=== PATIENT | male | born 1980 | race Caucasian/White ===

== ENCOUNTER 2017-08-26 08:50 | Emergency (ER) | payer OTHER ==
[~2017-08-26] VITALS: Ht 185.4 cm; Wt 123.4 kg
[2017-08-26 08:55] VITALS: BP 150/89; PULSE 82; RESP 16; TEMP 98.6; O2SAT 97
--- NOTE | 2017-08-26 09:18 | PD ---
HPI Chief Complaint: Abdominal Pain Time Seen by Provider: 09:04 Travel History International Travel<30 days: No Contact w/Intl Traveler<30days: No Traveled to known affect area: No History of Present Illness HPI This patient complains of abdominal pain. It's located in his left side/left flank. Duration 3 days. It's intermittent. Can be severe at times but at this time he is not having pain. No alleviating factors. Symptoms may have been exacerbated by a workout at the gym the morning before the pain started. No rectal bleeding or vomiting. He feels bloated in the abdomen. PFSH Past Medical History Cardiovascular Problems: Yes (pacemaker,defib) Social History Alcohol Use: No Tobacco Use: No Substance Use: No Allergies-Medications (Allergen,Severity, Reaction): Coded Allergies: povidone-iodine (Verified Allergy, Severe, rash, 08/26/17) soap (Verified Allergy, Severe, rash, 08/26/17) Reported Meds & Prescriptions Reported Meds & Active Scripts Active No Active Prescriptions or Reported Medications Review of Systems General / Constitutional: No: Fever Eyes: No: Visual changes HENT: No: Headaches Cardiovascular: No: Chest Pain or Discomfort Respiratory: No: Shortness of Breath Gastrointestinal: Positive: Abdominal Pain Genitourinary: Positive: Flank Pain, No: Dysuria Musculoskeletal: No: Pain Skin: No Rash Neurologic: No: Weakness Psychiatric: No: Depression Endocrine: No: Polydipsia Hematologic/Lymphatic: No: Easy Bruising Physical Exam Narrative GENERAL: Well-nourished, well-developed patient in no apparent distress. SKIN: Focused skin assessment reveals no rash and nodules. Skin is Warm and dry. HEAD: Atraumatic. Normocephalic. EYES: Pupils equal and round. No scleral icterus. No injection or drainage. ENT: No nasal bleeding or discharge. Mucous membranes pink and moist. NECK: Trachea midline. No JVD. CARDIOVASCULAR: Regular rate and rhythm. No murmur appreciated. RESPIRATORY: No accessory muscle use. Clear to auscultation. Breath sounds equal bilaterally. GASTROINTESTINAL: Abdomen soft, non-tender, nondistended. Hepatic and splenic margins not palpable. MUSCULOSKELETAL: No obvious deformities. No clubbing. No cyanosis. No edema. NEUROLOGICAL: Awake and alert. No obvious cranial nerve deficits. Motor grossly within normal limits. Normal speech. PSYCHIATRIC: Appropriate mood and affect; insight and judgment normal. Data Data Last Documented VS Vital Signs Date Time Temp Pulse Resp B/P (MAP) Pulse Ox O2 Delivery O2 Flow Rate FiO2 08/26/17 08:55 98.6 82 16 150/89 (109) [address] Abd/Pel W/O Iv Contrast (08/26/17 ) Urinalysis - C+S If Indicated (08/26/17 09:14) Ed Discharge Order (08/26/17 10:05) Labs Laboratory Tests Test 08/26/17 09:30 Urine Collection Type CLEAN CATCH Urine Color YELLOW Urine Turbidity CLEAR Urine pH 6.0 Urine Specific [place] 1.024 Urine Protein NEG mg/dL Urine Glucose (UA) NEG mg/dL Urine Ketones NEG mg/dL Urine Occult Blood TRACE Urine Nitrite NEG Urine Bilirubin NEG Urine Leukocyte Esterase NEG Urine RBC 0-3 /hpf Urine Squamous Epithelial Cells 0-5 /hpf Microscopic Urinalysis Comment CULT NOT INDICATED Urine Collection Time 09:30 [facility] Medical Decision Making Medical Screen Exam Complete: Yes Emergency Medical Condition: Yes Medical Record Reviewed: Yes Differential Diagnosis Kidney stone, pyelonephritis, abdominal wall strain or tear Narrative Course I have reviewed the patient's electronic medical record. Had a lengthy discussion with the patient regarding workup. He has intermittent left flank pain without obvious injury. He does not have urinary symptoms. Urinalysis is normal CT of abdomen and pelvis shows no cause for his pain, just scattered diverticuli Workup here is negative. Could be musculoskeletal in nature. Stable for outpatient follow-up. Diagnosis Primary Impression: Acute left flank pain Additional Instructions: The patient was advised to follow up with their physician and return if they worsen. Med/Other Pt SpecificInfo: Other Scripts No Active Prescriptions or Reported Meds Disposition: 01 DISCHARGE HOME Condition: Stable Humberto Glasre MD Aug 26, 2017 09:17
[2017-08-26 09:39] LABS: GLUCOSE,URINE NEG (NEG); KETONE, URINE NEG (NEG); NITRITE,URINE NEG (NEG)
[2017-08-26 09:44] LABS: BLOOD, URINE TRACE (NEG); METHOD OF COLLECTION CLEAN CATCH; URINE COLOR YELLOW (YELLW/STRAW)
[2017-08-26 09:45] LABS: COMMENT (UR) CULT NOT INDICATED; CULTURE IF INDICATED CULT NOT INDICATED; RBC, URINE 0-3 /hpf (0-3); SQUAMOUS EPITHELIAL CELL URINE 0-5 /hpf (0-5)
--- NOTE | 2017-08-26 10:00 | RADRPT ---
EXAM DATE/TIME: 08/26/2017 09:32 [facility] COMPARISON: No previous studies available for comparison. INDICATIONS : Left abdominal pain, worse with movement x 3 days. ORAL CONTRAST: No oral contrast ingested. RADIATION DOSE: 21.67 CTDIvol (mGy) MEDICAL HISTORY : Cardiovascular disease. SURGICAL HISTORY : Pacemaker. Valve replacement. ENCOUNTER: Initial ACUITY: 3 days PAIN SCALE: 5/10 LOCATION: Left abdomen TECHNIQUE: Volumetric scanning of the abdomen and pelvis was performed. Using automated exposure control and ad justment of the mA and/or kV according to patient size, radiation dose was kept as low as reasonably achievable to obtain optimal diagnostic quality images. DICOM format image data is available electro nically for review and comparison. FINDINGS: Compensated cardiomegaly without pleural effusion. The liver, spleen and pancreas are unremarkable The right and left adrenals are unremarkable Kidneys appear normal The region of the cecum and terminal ileum unremarkable. There no inflammatory changes. In the pelvis there are scattered diverticuli in the sigmoid colon without diverticulitis. There is no ascites or adenopathy. CONCLUSION: Scattered diverticuli sigmoid colon. I don't see inflammatory changes. I do not see etiology for left-sided abdominal pain. Douglas Perkins MD FACR on August 26, 2017 at 9:57 Board Certified Radiologist. This report was verified electronically.
[2017-08-26 10:13] VITALS: BP 140/80; PULSE 80; RESP 16; O2SAT 98
== END 2017-08-26 10:14 | disposition home or self-care (01) ==
LOC: PHED 08:50
DX: R10.9 Unspecified abdominal pain (principal); R14.0 Abdominal distension (gaseous)
CPT/HCPCS: 74176; 81001

== ENCOUNTER 2018-05-07 08:18 | Emergency (ER) | payer OTHER ==
[~2018-05-07] VITALS: Ht 185.4 cm; Wt 127.0 kg
[2018-05-07 08:22] VITALS: BP 182/104; PULSE 105; RESP 16; TEMP 98.3; O2SAT 94
[2018-05-07] MEDS ORDERED: SODIUM CHLORIDE 0.9% FLUSH 10 ML FLUSH IVF PRN (08:30)
--- NOTE | 2018-05-07 08:33 | PD ---
HPI Chief Complaint: Suicide Ideation/Attempt Time Seen by Provider: 08:27 Travel History International Travel<30 days: No Contact w/Intl Traveler<30days: No Traveled to known affect area: No History of Present Illness HPI Patient presents to the emergency department suicidal thoughts. Symptoms triggered by a fianc breakup. Plan to use his own personal guidance, which she has since given to his friends. Denies AV hallucinations, HI, chest pain, shortness of breath, fever, chills, but does report nausea with dry heaves this morning. He denies history of any mental health issues or suicidal ideation or depression in the past. 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 [facility] Past Medical History Cardiovascular Problems: Yes (pacer, defib) Past Surgical History Cardiac Surgery: Yes (open heart:electronic defibrillator) Social History Alcohol Use: No Tobacco Use: No Substance Use: No Allergies-Medications (Allergen,Severity, Reaction): Coded Allergies: povidone-iodine (Verified Allergy, Severe, rash, 05/07/18) soap (Verified Allergy, Severe, rash, 05/07/18) Reported Meds & Prescriptions Reported Meds & Active Scripts Active Reported Zofran (Ondansetron HCl) 4 Mg Tab 4 Mg PO Q6HR PRN Review of Systems Except as stated in HPI: all other systems reviewed are Neg Physical Exam Narrative GENERAL: No acute distress. SKIN: Focused skin assessment warm/dry. HEAD: Atraumatic. Normocephalic. EYES: Pupils equal and round. No scleral icterus. No injection or drainage. ENT: No nasal bleeding or discharge. Mucous membranes pink and moist. NECK: Trachea midline. No JVD. CARDIOVASCULAR: Regular rate and rhythm. No murmur appreciated. RESPIRATORY: No accessory muscle use. Clear to auscultation. Breath sounds equal bilaterally. GASTROINTESTINAL: Abdomen soft, non-tender, nondistended. Hepatic and splenic margins not palpable. MUSCULOSKELETAL: No obvious deformities. No clubbing. No cyanosis. No edema. NEUROLOGICAL: Awake and alert. No obvious cranial nerve deficits. Motor grossly within normal limits. Normal speech. PSYCHIATRIC: Appropriate mood and affect; insight and judgment normal. Data Data Last Documented VS Vital Signs Date Time Temp Pulse Resp B/P (MAP) Pulse Ox O2 Delivery O2 Flow Rate FiO2 05/07/18 11:28 90 16 134/66 (88) 96 Room Air 05/07/18 08:22 98.3 Orders Orders Complete Blood Count With Diff (05/07/18 08:30) Comprehensive Metabolic Panel (05/07/18 08:30) Thyroid Stimulating Hormone (05/07/18 08:30) Psych Screen (05/07/18 08:30) Sodium Chloride 0.9% Flush (Ns Flush) (05/07/18 08:30) Drug Screen, Random Urine (05/07/18 08:30) Alcohol (Ethanol) (05/07/18 08:30) Salicylates (Aspirin) (05/07/18 08:30) Tylenol (Acetaminophen) (05/07/18 08:30) Ckmb (Isoenzyme) Profile (05/07/18 09:17) Troponin I (05/07/18 09:17) Chest, Single Ap (05/07/18 09:33) B-Type Natriuretic Peptide (05/07/18 09:51) CKMB (05/07/18 09:15) CKMB% (05/07/18 09:15) Troponin I (05/07/18 11:12) Ckmb (Isoenzyme) Profile (05/07/18 11:29) Creatine Kinase (Cpk) (05/07/18 11:29) CKMB (05/07/18 12:15) CKMB% (05/07/18 12:15) Labs Laboratory Tests Test 05/07/18 09:15 05/07/18 10:00 05/07/18 10:10 05/07/18 12:15 White Blood Count 6.5 TH/MM3 Red Blood Count 5.40 MIL/MM3 Hemoglobin 16.4 GM/DL Hematocrit 49.3 % Mean Corpuscular Volume 91.4 FL Mean Corpuscular Hemoglobin 30.4 PG Mean Corpuscular Hemoglobin Concent 33.3 % Red Cell Distribution Width 12.1 % Platelet Count 308 TH/MM3 Mean Platelet Volume 7.9 FL Neutrophils (%) (Auto) 51.9 % Lymphocytes (%) (Auto) 35.5 % Monocytes (%) (Auto) 9.2 % Eosinophils (%) (Auto) 1.4 % Basophils (%) (Auto) 2.0 % Neutrophils # (Auto) 3.4 TH/MM3 Lymphocytes # (Auto) 2.3 TH/MM3 Monocytes # (Auto) 0.6 TH/MM3 Eosinophils # (Auto) 0.1 TH/MM3 Basophils # (Auto) 0.1 TH/MM3 CBC Comment DIFF FINAL Differential Comment Blood Urea Nitrogen 12 MG/DL Creatinine 0.95 MG/DL Random Glucose 105 MG/DL Total Protein 8.1 GM/DL Albumin 4.1 GM/DL Calcium Level 8.5 MG/DL Alkaline Phosphatase 103 U/L Aspartate Amino Transf (AST/SGOT) 22 U/L Alanine Aminotransferase (ALT/SGPT) 43 U/L Total Bilirubin 0.5 MG/DL Sodium Level 141 MEQ/L Potassium Level 4.3 MEQ/L Chloride Level 105 MEQ/L Carbon Dioxide Level 28.6 MEQ/L Anion Gap 7 MEQ/L Estimat Glomerular Filtration Rate 89 ML/MIN Total Creatine Kinase 195 U/L 179 U/L Creatine Kinase MB 2.8 NG/ML 2.5 NG/ML Troponin I LESS THAN 0.02 NG/ML LESS THAN 0.02 NG/ML Thyroid Stimulating Hormone 3rd Gen 1.170 uIU/ML Salicylates Level LESS THAN 1.7 MG/DL Acetaminophen Level LESS THAN 2.0 MCG/ML Ethyl Alcohol Level 110 MG/DL Urine Opiates Screen NEG Urine Barbiturates Screen NEG Urine Amphetamines Screen NEG Urine Benzodiazepines Screen NEG Urine Cocaine Screen NEG Urine Cannabinoids Screen NEG B-Type Natriuretic Peptide 28 PG/ML MDM Medical Decision Making Medical Screen Exam Complete: Yes Emergency Medical Condition: Yes Interpretation(s) ECG: Rate 97, right bundle branch block, ST depression in lead 1/2/aVL V3 through V6, LELAND aVF, V1 through V3 Labs: Elevated alcohol level Last Impressions Chest X-Ray 05/07/18 0912 Signed Impressions: CONCLUSION: Cardiomegaly with increase in pulmonary vascularity. Status post CABG. Differential Diagnosis Suicidal ideation, depression, alcohol/drug intoxication Narrative Course Patient presents to the emergency department with suicidal ideation. He is afebrile, tachycardic, hypertensive. Patient placed on a Castillo act and mental health consult and labs ordered. 156/90 BP and HR 97 in ER. 1127: Patient requesting referral for both Cardiology, as his digital asset manager is in [place], and GI, for n/v that he has only been able to see GI doctor's PA about. They are requesting that he gets cardiology clearance before they scope him, which they advised he needs. 1251: Repeat cardiac enzymes wnl. Patient resting in stretcher talking to sitter. Physician Communication Physician Communication 1056: Discussed case with cardiology director occupational, Dr. Hassan. Sent copy of ECG. Patient doesn't have chest pain but was tachy in triage so ECG ordered. 1110: Dr Hassan believes ECG 2/2 RVH secondary to tetrology of fallot. Advised to get repeat enzymes if negative, cleared. Diagnosis Primary Impression: Suicidal ideation Referrals: Leanne Flores MD, Joshua A. MD Disposition: 70 TRANSFER TO OTHER FACILITY ([facility] for psych assessment) Mary Ann MD May 07, 2018 08:33
[2018-05-07] MEDS ORDERED: ZOFR4TAB PO (09:00)
[2018-05-07 09:28] LABS: AUTOMATED NEUTROPHIL # 3.4 TH/MM3 (1.8-7.7); BASOPHIL # 0.1 TH/MM3 (0-0.2); EOSINOPHIL # 0.1 TH/MM3 (0-0.4); EOSINOPHIL % 1.4 % (0.0-4.0); HEMATOCRIT 49.3 % (39.0-51.0); HEMOGLOBIN 16.4 GM/DL (13.0-17.0); LYMPH % 35.5 % (9.0-44.0); LYMPHOCYTE # 2.3 TH/MM3 (1.0-4.8); MEAN CELL VOLUME 91.4 FL (80.0-100.0); MEAN CORPUSCULAR HEMOGLOBIN 30.4 PG (27.0-34.0); MEAN CORPUSCULAR HGB CONC 33.3 % (32.0-36.0); MEAN PLATELET VOLUME 7.9 FL (7.0-11.0); MONO % 9.2 % (0.0-8.0); MONOCYTE # 0.6 TH/MM3 (0-0.9); NEUT % 51.9 % (16.0-70.0); PLATELET COUNT 308 TH/MM3 (150-450); RED CELL DISTRIBUTION WIDTH 12.1 % (11.6-17.2); WHITE BLOOD COUNT 6.5 TH/MM3 (4.0-11.0)
--- NOTE | 2018-05-07 09:49 | RADRPT ---
EXAM DATE: 05/07/2018 9:45 AM EDT AGE/SEX: 38 years / Male INDICATIONS: Suicidal, chest pain CLINICAL DATA: This is the patient's initial encounter. Patient reports that signs and symptoms have been present for 1 day and indicates a pain score of 0/10. MEDICAL/SURGICAL HISTORY: Cardiovascular disease. Defibrillator. COMPARISON: No prior exams available for comparison. FINDINGS: A single AP view of the chest demonstrates the lungs to be symmetrically aerated without evidence of mass, infiltrate or effusion. Cardiomegaly with increase in pulmonary vascularity. Status post CABG. Left-sided pacemaker with 2 intact leads The cardiomediastinal contours are unremarkable. Osseous st ructures are intact. CONCLUSION: Cardiomegaly with increase in pulmonary vascularity. Status post CABG. Electronically signed by: Bobby Guillory MD 05/07/2018 9:47 AM EDT
[2018-05-07 09:57] LABS: CALCIUM 8.5 MG/DL (8.5-10.1)
[2018-05-07 09:58] LABS: ALBUMIN 4.1 GM/DL (3.4-5.0); BICARBONATE 28.6 MEQ/L (21.0-32.0); BLOOD UREA NITROGEN 12 MG/DL (7-18); GLUCOSE,RANDOM 105 MG/DL (74-106)
[2018-05-07 10:01] LABS: ALT (GPT) 43 U/L (12-78); AST (GOT) 22 U/L (15-37); CREATININE 0.95 MG/DL (0.60-1.30); GLOMERULAR FILTRATION RATE 89 ML/MIN (>89)
[2018-05-07 10:02] LABS: TOTAL BILIRUBIN ADULT 0.5 MG/DL (0.2-1.0); TOTAL PROTEIN 8.1 GM/DL (6.4-8.2)
[2018-05-07 10:04] LABS: ALKALINE PHOSPHATASE 103 U/L (45-117)
[2018-05-07 10:05] LABS: CHLORIDE 105 MEQ/L (98-107); SODIUM (NA) 141 MEQ/L (136-145)
[2018-05-07 10:11] LABS: TROPONIN I LESS THAN 0.02 NG/ML (0.02-0.05)
[2018-05-07 10:17] VITALS: BP 131/74; PULSE 91; RESP 16; O2SAT 96
[2018-05-07 10:39] LABS: ACETAMINOPHEN LESS THAN 2.0 MCG/ML (10.0-30.0)
[2018-05-07 11:28] VITALS: BP 134/66; PULSE 90; RESP 16; O2SAT 96
[2018-05-07 13:11] VITALS: BP 135/80; PULSE 89; RESP 16; O2SAT 96
[2018-05-07 16:00] VITALS: BP 153/95; PULSE 84; RESP 20; TEMP 98.3; O2SAT 98
--- NOTE | 2018-05-07 17:15 | PD ---
History of Present Illness Chief Complaint: Suicide Ideation/Attempt Time Seen by Provider: 16:50 Travel History International Travel<30 Days: No Contact w/Intl Traveler<30days: No Known affected area: No Legal Status Legal Status: Involuntary Castillo Act Comment: Levi Lyn, ED physician History of Present Illness: History of Present Illness HPI Patient is a 38-year-old single male, with no previous psychiatric history who presents to the emergency department on a voluntary status reporting suicidal thoughts. The patient symptoms triggered by a fianc breakup last night. At that time he had thoughts of using his gun to harm himself but did not do so. This morning he called an [employer] and came to the emergency department. He had some complaints of nausea and was evaluated medically and cleared. The patient was monitored in J pod and presented no behavioral concerns and no suicidality. EMR reviewed. No previous contact with [facility] psychiatry. Blood alcohol level on arrival 110. Patient is seen. He is alert, oriented, cooperative and calm. His speech is clear and logical. No evidence of any psychosis, no yasmani, no hypomania. He tells me that his fianc broke up with him via text message last night and he went out and got a bottle of alcohol and was drinking when he began experiencing suicidal thoughts. Today clinically sober he states' I do not really want to kill myself. It was mostly the alcohol.' The patient is appropriately sad over the breakup of a 2 year relationship. Remainder of psychiatric review of system is negative Telephone contact with his NOK, MRs. Rooney. She has no concerns if he were to be discharged. Her will keep his guns in their home. Patient's mother is on her way from [place] today to stay with the patient.. PFSH Past Medical History Cardiovascular Problems: Yes (eben kerns, ) Diminished Hearing: No Influenza Vaccination: No ?: Not Past Surgical History Cardiac Surgery: Yes (open heart:electronic defibrillator) Psychiatric History Psychiatric History Hx Psychiatric Treatment: Negative History of Inpatient Treatment: No Guns or firearms in home: No (Owns guns but were given to neighbor to keep in safe.) Social History Born and raised in [place]. Moved to [place] 1 year ago. Was living with his fiance of 2 years. 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 Hx Alcohol Use: Yes (occ last night a lot) Hx Tobacco Use: No Hx Substance Use: Yes Substance Use Type: Alcohol Other Substances Used: Occ drinks alcohol. Last night had a large amt of alcohol Hx of Substance Use Treatment: No Allergies-Medications (Allergen,Severity, Reaction): Coded Allergies: povidone-iodine (Verified Allergy, Severe, rash, 05/07/18) soap (Verified Allergy, Severe, rash, 05/07/18) Reported Meds & Prescriptions Reported Meds & Active Scripts Active Reported Zofran (Ondansetron HCl) 4 Mg Tab 4 Mg PO Q6HR PRN Review of Systems Gastrointestinal: COMPLAINS OF: Abdominal pain, Nausea, Vomiting Psychiatric: DENIES: Anxiety, Confusion, Mood changes, Depression, Hallucinations, Agitation, Suicidal Ideation, Homicidal Ideation, Delusions Mental Status Examination Appearance: Appropriate (In hospital scrubs) Consciousness: Alert Orientation: x4 Motor Activity: Normal gait Speech: Unremarkable Language: Adequate Fund of Knowledge: Adequate Attention and Concentration: Adequate Memory: Unremarkable Mood: Appropriate Affect: Appropriate Thought Process & Associations: Intact, Logical, Goal directed Thought Content: Appropriate Hallucination Type: None Delusion Type: None Suicidal Ideation: No Suicidal Plan: No Suicidal Intention: No Homicidal Ideation: No Homicidal Plan: No Homicidal Intention: No Insight: Adequate Judgment: Adequate MDM Medical Decision Making Medical Record Reviewed: Yes Assessment/Plan Patient is a 38-year-old single male, with no previous psychiatric history who presents to the emergency department on a voluntary status reporting suicidal thoughts. The patient symptoms triggered by a fianc breakup last night. At that time he had thoughts of using his gun to harm himself but did not do so. This morning he called an [employer] and came to the emergency department. He had some complaints of nausea and was evaluated medically and cleared. The patient was monitored in J pod and presented no behavioral concerns and no suicidality. The patient does not present any evidence of any unstable mental illness as defined under the Castillo act. He has adequate support. His mother is on her way from [place] to be with him. He has supportive friends who have secure his weapons. The patient does not meet criteria to remain under the Castillo act and is requesting to be discharged. I find no criteria to keep him here against his will. I have provided psychoeducation and support. Castillo act as lifted. Instructed to return to the emergency department if any changes or concerns. Orders Orders Complete Blood Count With Diff (05/07/18 08:30) Comprehensive Metabolic Panel (05/07/18 08:30) Thyroid Stimulating Hormone (05/07/18 08:30) Psych Screen (05/07/18 08:30) Sodium Chloride 0.9% Flush (Ns Flush) (05/07/18 08:30) Drug Screen, Random Urine (05/07/18 08:30) Alcohol (Ethanol) (05/07/18 08:30) Salicylates (Aspirin) (05/07/18 08:30) Tylenol (Acetaminophen) (05/07/18 08:30) Ckmb (Isoenzyme) Profile (05/07/18 09:17) Troponin I (05/07/18 09:17) Chest, Single Ap (05/07/18 09:33) B-Type Natriuretic Peptide (05/07/18 09:51) CKMB (05/07/18 09:15) CKMB% (05/07/18 09:15) Troponin I (05/07/18 11:12) Ckmb (Isoenzyme) Profile (05/07/18 11:29) Creatine Kinase (Cpk) (05/07/18 11:29) CKMB (05/07/18 12:15) CKMB% (05/07/18 12:15) Diet Regular Basic (05/07/18 Dinner) Electrocardiogram (05/07/18 08:56) Results Vital Signs Date Time Temp Pulse Resp B/P (MAP) Pulse Ox O2 Delivery O2 Flow Rate FiO2 05/07/18 16:00 98.3 84 20 153/95 (114) 98 Room Air 05/07/18 13:20 05/07/18 13:11 89 16 135/80 (98) 96 Room Air 05/07/18 11:28 90 16 134/66 (88) 96 Room Air 05/07/18 10:17 91 16 131/74 (93) 96 Room Air 05/07/18 08:54 16 05/07/18 08:22 98.3 105 16 182/104 (130) 94 Laboratory Tests Test 05/07/18 09:15 05/07/18 10:00 05/07/18 10:10 05/07/18 12:15 White Blood Count 6.5 Red Blood Count 5.40 Hemoglobin 16.4 Hematocrit 49.3 Mean Corpuscular Volume 91.4 Mean Corpuscular Hemoglobin 30.4 Mean Corpuscular Hemoglobin Concent 33.3 Red Cell Distribution Width 12.1 Platelet Count 308 Mean Platelet Volume 7.9 Neutrophils (%) (Auto) 51.9 Lymphocytes (%) (Auto) 35.5 Monocytes (%) (Auto) 9.2 Eosinophils (%) (Auto) 1.4 Basophils (%) (Auto) 2.0 Neutrophils # (Auto) 3.4 Lymphocytes # (Auto) 2.3 Monocytes # (Auto) 0.6 Eosinophils # (Auto) 0.1 Basophils # (Auto) 0.1 CBC Comment DIFF FINAL Differential Comment Blood Urea Nitrogen 12 Creatinine 0.95 Random Glucose 105 Total Protein 8.1 Albumin 4.1 Calcium Level 8.5 Alkaline Phosphatase 103 Aspartate Amino Transf (AST/SGOT) 22 Alanine Aminotransferase (ALT/SGPT) 43 Total Bilirubin 0.5 Sodium Level 141 Potassium Level 4.3 Chloride Level 105 Carbon Dioxide Level 28.6 Anion Gap 7 Estimat Glomerular Filtration Rate 89 Total Creatine Kinase 195 179 Creatine Kinase MB 2.8 2.5 Troponin I LESS THAN 0.02 LESS THAN 0.02 Thyroid Stimulating Hormone 3rd Gen 1.170 Salicylates Level LESS THAN 1.7 Acetaminophen Level LESS THAN 2.0 Ethyl Alcohol Level 110 Urine Opiates Screen NEG Urine Barbiturates Screen NEG Urine Amphetamines Screen NEG Urine Benzodiazepines Screen NEG Urine Cocaine Screen NEG Urine Cannabinoids Screen NEG B-Type Natriuretic Peptide 28 Diagnosis Primary Impression: Suicidal ideation Additional Impression: Adjustment disorder Psychiatrically Cleared: Yes Referrals: Leanne Flores MD, Joshua A. MD Disposition: 01 DISCHARGE HOME Condition: Stable Problem Qualifiers Additional Impression: Adjustment disorder Qualified Codes: F43.23 - Adjustment disorder with mixed anxiety and depressed mood Sana Leon May 07, 2018 17:15
--- NOTE | 2018-05-07 17:42 | PD ---
Physical Exam Date Seen by Provider: May 07, 2018 Time Seen by Provider: 17:42 Narrative 38-year-old previously medically cleared for psychiatric evaluation, has been seen by psychiatric staff and deemed to be psychiatrically stable for discharge at this time. Patient remains medically stable for discharge. Patient is medically follow-up with chicken stuffer for his heart condition. Follow-up will be based on psychiatric note. Data Data Last Documented VS Vital Signs Date Time Temp Pulse Resp B/P (MAP) Pulse Ox O2 Delivery O2 Flow Rate FiO2 05/07/18 16:00 98.3 84 20 153/95 (114) 98 Room Air Orders Orders Complete Blood Count With Diff (05/07/18 08:30) Comprehensive Metabolic Panel (05/07/18 08:30) Thyroid Stimulating Hormone (05/07/18 08:30) Psych Screen (05/07/18 08:30) Sodium Chloride 0.9% Flush (Ns Flush) (05/07/18 08:30) Drug Screen, Random Urine (05/07/18 08:30) Alcohol (Ethanol) (05/07/18 08:30) Salicylates (Aspirin) (05/07/18 08:30) Tylenol (Acetaminophen) (05/07/18 08:30) Ckmb (Isoenzyme) Profile (05/07/18 09:17) Troponin I (05/07/18 09:17) Chest, Single Ap (05/07/18 09:33) B-Type Natriuretic Peptide (05/07/18 09:51) CKMB (05/07/18 09:15) CKMB% (05/07/18 09:15) Troponin I (05/07/18 11:12) Ckmb (Isoenzyme) Profile (05/07/18 11:29) Creatine Kinase (Cpk) (05/07/18 11:29) CKMB (05/07/18 12:15) CKMB% (05/07/18 12:15) Diet Regular Basic (05/07/18 Dinner) Electrocardiogram (05/07/18 08:56) Labs Laboratory Tests Test 05/07/18 09:15 05/07/18 10:00 05/07/18 10:10 05/07/18 12:15 White Blood Count 6.5 TH/MM3 Red Blood Count 5.40 MIL/MM3 Hemoglobin 16.4 GM/DL Hematocrit 49.3 % Mean Corpuscular Volume 91.4 FL Mean Corpuscular Hemoglobin 30.4 PG Mean Corpuscular Hemoglobin Concent 33.3 % Red Cell Distribution Width 12.1 % Platelet Count 308 TH/MM3 Mean Platelet Volume 7.9 FL Neutrophils (%) (Auto) 51.9 % Lymphocytes (%) (Auto) 35.5 % Monocytes (%) (Auto) 9.2 % Eosinophils (%) (Auto) 1.4 % Basophils (%) (Auto) 2.0 % Neutrophils # (Auto) 3.4 TH/MM3 Lymphocytes # (Auto) 2.3 TH/MM3 Monocytes # (Auto) 0.6 TH/MM3 Eosinophils # (Auto) 0.1 TH/MM3 Basophils # (Auto) 0.1 TH/MM3 CBC Comment DIFF FINAL Differential Comment Blood Urea Nitrogen 12 MG/DL Creatinine 0.95 MG/DL Random Glucose 105 MG/DL Total Protein 8.1 GM/DL Albumin 4.1 GM/DL Calcium Level 8.5 MG/DL Alkaline Phosphatase 103 U/L Aspartate Amino Transf (AST/SGOT) 22 U/L Alanine Aminotransferase (ALT/SGPT) 43 U/L Total Bilirubin 0.5 MG/DL Sodium Level 141 MEQ/L Potassium Level 4.3 MEQ/L Chloride Level 105 MEQ/L Carbon Dioxide Level 28.6 MEQ/L Anion Gap 7 MEQ/L Estimat Glomerular Filtration Rate 89 ML/MIN Total Creatine Kinase 195 U/L 179 U/L Creatine Kinase MB 2.8 NG/ML 2.5 NG/ML Troponin I LESS THAN 0.02 NG/ML LESS THAN 0.02 NG/ML Thyroid Stimulating Hormone 3rd Gen 1.170 uIU/ML Salicylates Level LESS THAN 1.7 MG/DL Acetaminophen Level LESS THAN 2.0 MCG/ML Ethyl Alcohol Level 110 MG/DL Urine Opiates Screen NEG Urine Barbiturates Screen NEG Urine Amphetamines Screen NEG Urine Benzodiazepines Screen NEG Urine Cocaine Screen NEG Urine Cannabinoids Screen NEG B-Type Natriuretic Peptide 28 PG/ML [facility] Medical Record Reviewed: Yes Supervised Visit with EDUARDA: Yes Narrative Course 38-year-old previously medically cleared for psychiatric evaluation, has been seen by psychiatric staff and deemed to be psychiatrically stable for discharge at this time. Patient is medically follow-up for his heart condition. Patient remains medically stable for discharge. Follow-up will be based on psychiatric note. Diagnosis Primary Impression: Suicidal ideation Additional Impression: Adjustment disorder Qualified Codes: F43.23 - Adjustment disorder with mixed anxiety and depressed mood Referrals: Leanne Flores MD, Joshua A. MD Patient Instructions: General Instructions Disposition: 01 DISCHARGE HOME Condition: Quan Hand May 07, 2018 17:42
--- NOTE | 2018-05-08 23:35 | EKG ---
Date Performed: 05/07/2018 Time Performed: 08:56:19 PTAGE: 38 years EKG: Sinus rhythm INDETERMINATE AXIS RIGHT BUNDLE BRANCH BLOCK ST DEVIATION AND MARKED T-WAVE ABNORMALITY, CONSIDER AN TERIOR ISCHEMIA ABNORMAL ECG INTERPRETATION BASED ON A DEFAULT AGE OF 40 YEARS NO PREVIOUS TRACING DOCTOR: Hira Varghese Interpretating Date/Time 05/08/2018 23:34:54
== END 2018-05-07 18:09 | disposition home or self-care (01) ==
LOC: PHED 08:18 → NEPJ 18:09
DX: R45.851 Suicidal ideations (principal); F43.23 Adjustment disorder with mixed anxiety and depressed mood; R11.0 Nausea; R00.0 Tachycardia, unspecified; I10 Essential (primary) hypertension; R94.31 Abnormal electrocardiogram [ECG] [EKG]; Z79.899 Other long term (current) drug therapy; Z86.79 Personal history of other diseases of the circulatory system
CPT/HCPCS: 71045; 80053; 80307; 82550; 82552; 83880; 84443; 84484; 85025; 93005